=== PATIENT | male | born 1985 | race Caucasian/White ===

== ENCOUNTER 2017-04-08 13:53 | Emergency (ER) | payer BC ==
[~2017-04-08 13:53] MED LIST: ATARAX PO; BENICAR HCT 20-1 TA1 PO; BENICAR HCT 40-1 TA2 PO; DIAZEPAM PO; DICLOFENAC PO; FLEXERIL PO; FLEXERIL10 M1 PO; FLEXERIL10 MG PO; KLONOPIN0.5 M1 PO; KLONOPIN0.5 MG PO; LISINOPRIL-HCTZ1 T14 PO; MEDROL DOSEPAK4 MG PO; NABUMETONE PO; NAPROSYN500 MG PO; NO MEDICATIONS; PHENERGAN DM1 ML PO; PREDNISONE PO; PREDNISONE10 MG PO; TYLENOL #3 PO; ULTRAM; VIBRAMYCIN100 M1 PO
== END 2017-04-08 15:26 | disposition home or self-care (01) ==
LOC: SED 13:53
DX: L03.311 Cellulitis of abdominal wall (principal); I10 Essential (primary) hypertension; F17.210 Nicotine dependence, cigarettes, uncomplicated; F41.0 Panic disorder [episodic paroxysmal anxiety]; Z23 Encounter for immunization; W57.XXXA Bitten or stung by nonvenomous insect and other nonvenomous arthropods, initial encounter
CPT/HCPCS: 10060; 87070; 87077; 87186; 87205; 90471; 90715; 99283

== ENCOUNTER 2017-05-10 11:25 | Emergency (ER) | payer BC | END 2017-05-10 12:21 | disposition home or self-care (01) | LOC: SED 11:25 | DX: J02.0 Streptococcal pharyngitis (principal); I10 Essential (primary) hypertension; F17.210 Nicotine dependence, cigarettes, uncomplicated; Z79.899 Other long term (current) drug therapy | CPT/HCPCS: 87880; 96372; 99283; J1100 ==

== ENCOUNTER 2017-07-01 03:25 | Emergency (ER) | payer BC ==
[~2017-07-01] VITALS: Ht 175.3 cm; Wt 158.8 kg
== END 2017-07-01 04:38 | disposition home or self-care (01) ==
LOC: SED 03:25
DX: J02.0 Streptococcal pharyngitis (principal); Z79.899 Other long term (current) drug therapy
CPT/HCPCS: 87880; 96372; 99283; J0561